=== PATIENT | male | born 1970 | race Caucasian/White ===

== ENCOUNTER 2017-12-08 07:21 | Emergency (ER) | payer BC, OTHER ==
[~2017-12-08] VITALS: Ht 175.3 cm; Wt 113.0 kg
[~2017-12-08 07:21] MED LIST: CETI10TA84 PO; CLX20 PO; LEVO75TA25 PO; MULTTAB58 PO
[2017-12-08 07:22] VITALS: TEMP 36.9; Ht 175.3 cm; Wt 113.0 kg
[2017-12-08] MEDS ORDERED: LIDO/EPINEPHRINE/SOD BICARB 20 ML VIAL INFIL ONE (07:30)
[2017-12-08] MEDS ORDERED: ONDANSETRON 4MG OD TAB ONE (07:34)
--- NOTE | 2017-12-08 07:41 | EMERGENCY ROOM VISIT NOTE ---
History Report prepared by Caryl: Joselo Muller Under the Supervision of: Dr. German Woodward M.D. First contact with patient: 07:27 Chief Complaint: HEAD INJURY (MINOR) Stated Complaint: FELL AND HIT HEAD AT WORK,BLEEDING/PAIN History of Present Illness The patient is a 47 year old male who presents to the Emergency Room with complaints of a mild head injury that occurred [employer]. He has a past medical history of hyperlipidemia and hypothyroidism. This morning, the patient was walking outside when he accidentally slipped and fell, hitting his head in the process. He has a laceration to the area. He denies any loss of consciousness, weakness, or numbness. He has now developed a headache that he rates a 6/10 in severity. He denies this headache as being the worst of his life. He denies any blood thinner use. He notes that he also struck his left elbow, but is able to move it normally and is not bothering him. He denies any other trauma or injury to any other location. He is currently nauseated. He denies any loss of coordination or vomiting. Source of History: patient Onset: [employer] Position: head Symptom Intensity: mild Quality: other (Head Injury) Timing: constant Associated Symptoms: + headache, + nausea, No LOC, No vomiting, No weakness , No numbness Review of Systems See HPI for pertinent positives & negatives. A total of 10 systems reviewed and were otherwise negative. Past Medical & Surgical Medical Problems: (1) Hyperlipidemia (2) Hypothyroidism Family History Diabetes mellitus Heart disease Hypertension Social History Smoking Status: Never Smoker Smokeless Tobacco Use: No Alcohol Use: occasionally Drug Use: none Marital Status: Housing Status: lives with family Occupation Status: employed Current/Historical Medications Scheduled Cetirizine (Zyrtec), 10 MG PO DAILY Citalopram (Citalopram Hydrobromide), 20 MG PO DAILY Levothyroxine Sodium (Synthroid), 75 MCG PO DAILY Allergies Coded Allergies: Sulfa Drugs (Unverified Allergy, Mild, RASH, 12/08/17) Physical Exam Vital Signs Date Time Temp Pulse Resp B/P (MAP) Pulse Ox O2 Delivery O2 Flow Rate FiO2 12/08/17 08:28 77 18 135/79 95 12/08/17 07:22 36.9 76 18 113/74 96 Room Air Physical Exam GENERAL: Patient is a healthy-appearing well-nourished male HEAD: Normocephalic. There is a 5 cm laceration to the left parietal area. EYES: Ocular movements intact pupils equal and react to light OROPHARYNX mucous membranes are moist no exudates present no erythema or edema present NECK: Supple no nuchal rigidity CHEST: Good equal expansion LUNGS: Clear and equal to auscultation CARDIAC: Normal S1 and S2 ABDOMEN: Soft nontender no guarding BACK: No CVA tenderness EXTREMITIES: No pain upon palpation normal muscle strength in all groups no clubbing cyanosis or edema NEURO: GCS 15. Patient is following commands and answering questions appropriately. Alert and oriented x3 Cranial Nerves 2-12 grossly intact Medical Decision & Procedures Medications Administered Medications (Trade) Dose Ordered Sig/Pancho Route Start Time Stop Time Status Last Admin Dose Admin Lidocaine/ Epinephrine (Buffered Xylocaine/ Epinephrine 1% Inj) 20 ml STK-MED ONCE INFIL 12/08/17 07:30 12/08/17 07:31 DC 12/08/17 07:30 20 ML Ondansetron HCl (Zofran Odt) 4 mg STK-MED ONCE .ROUTE 12/08/17 07:34 12/08/17 07:35 DC 12/08/17 07:35 4 MG Procedure Location: Left parietal area Total length: 5 cm Complexity: Simple, linear Verbal consent was obtained after the risks and benefits were explained, including but not limited to bleeding, scarring, infection, pain, and bone/joint /nerve damage. At this time, the risks of the procedure are less than the risks of NOT performing the procedure. A time out was taken and the correct patient and site identified. The skin was prepped with betadine. The target area was anesthetized with 10 ml of 1% lidocaine without epinephrine. Copious irrigation was performed using normal saline. The skin was re-prepped with betadine and a sterile field set. The wound was explored for foreign bodies and none found. Examination revealed no injury to deep structures such as tendons, bone, or significant blood vessels. Debridement was not performed. The wound edges were approximated using 16 cyndee. Hemostasis and excellent approximation was achieved. Antibacterial ointment and a sterile dressing applied. Detailed wound care instructions and signs and symptoms of infection reviewed with the patient. No complications and the patient tolerated the procedure well. ED Course 726: Past medical records reviewed. The patient was evaluated in room A2. A complete history and physical examination was performed. 0733: I performed a laceration repair procedure at this time. Please see the procedure note for more information. The patient was given Zofran Odt 4 mg PO during the procedure secondary to his nausea. 0737: The patient states that his headache and nausea feel better at this time. He also confirms that it was not the worst headache of his life. 0830: Upon reexamination the patient is resting. I discussed results and treatment plan with the patient. He verbalizes agreement and understanding. The patient is ready for discharge. Medical Decision Differential diagnosis: Etiologies such as fracture, dislocation, intra-abdominal, pneumothorax, intrathoracic , intracranial, neurologic, as well as other traumatic pathologies were entertained. This is a 47-year-old male who presents emergency department with a laceration to his had after a fall. This was repaired as above. I gave my customary talk on the dangers of radiation balanced with the need for CAT scan imaging and using shared medical decision making with the patient and his we felt that a CAT scan was not necessary at this point as the patient is not having any projectile vomiting, did not lose consciousness, has no loss of coordination. The patient will return however if he develops any of these symptoms. He will return in 7-10 days to have the cyndee removed. Patient and are in agreement with the treatment plan. Head Trauma GCS Score: 15 Medication Reconcilliation Current Medication List: was personally reviewed by me Blood Pressure Screening Patient's blood pressure: Normal blood pressure Blood pressure disposition: Did not require urgent referral Impression Primary Impression: Laceration Additional Impression: Head injury Scribe Attestation The scribe's documentation has been prepared under my direction and personally reviewed by me in its entirety. I confirm that the note above accurately reflects all work, treatment, procedures, and medical decision making performed by me. Departure Information Dispostion Home / Self-Care Referrals Ld Antoine M.D. (PCP) Forms HOME CARE DOCUMENTATION FORM, IMPORTANT VISIT INFORMATION, School Instructions, Work Instructions Patient Instructions ED Head Injury Closed, ED Laceration Scalp Stitch Or Stap, [facility] Additional Instructions Remove cyndee in 7-10 days You have been examined and treated today on an emergency basis only. This is not a substitute for, or an effort to provide, complete comprehensive medical care. It is impossible to recognize and treat all injuries or illnesses in a single emergency department visit. It is therefore important that you follow up closely with Dr Antoine. Call as soon as possible for an appointment. Thank you for your time and consideration. I look forward to speaking with you again soon. Please don't hesitate to call us if you have any questions. Problem Qualifiers Additional Impression: Head injury Encounter type: initial encounter Qualified Codes: S09.90XA - Unspecified injury of head, initial encounter
[2017-12-08] MEDS ORDERED: CLX/20 PO (07:49)
[2017-12-08] MEDS ORDERED: LEVO75TA PO (07:49)
[2017-12-08 08:28] VITALS: BP 135/79; PULSE 77; O2SAT 95
== END 2017-12-08 08:28 | disposition home or self-care (01) ==
LOC: C.EDB 07:22 → C.EDA 08:28
DX: S01.91XA Laceration without foreign body of unspecified part of head, initial encounter (principal); S09.90XA Unspecified injury of head, initial encounter; W01.0XXA Fall on same level from slipping, tripping and stumbling without subsequent striking against object, initial encounter; Y92.89 Other specified places as the place of occurrence of the external cause; E78.5 Hyperlipidemia, unspecified; E03.9 Hypothyroidism, unspecified; Z79.899 Other long term (current) drug therapy; Z83.3 Family history of diabetes mellitus; Z82.49 Family history of ischemic heart disease and other diseases of the circulatory system

== ENCOUNTER 2017-12-16 07:29 | Emergency (ER) | payer OTHER ==
[~2017-12-16] VITALS: Ht 175.3 cm; Wt 111.7 kg
[~2017-12-16 07:29] MED LIST changes: +CLX/20 PO; -CLX20 PO; +LEVO75TA PO; -LEVO75TA25 PO; -MULTTAB58 PO
[2017-12-16 07:32] VITALS: BP 135/90; PULSE 84; TEMP 36.8; O2SAT 96; Ht 175.3 cm; Wt 111.7 kg
[2017-12-16] MEDS ORDERED: LEVO88TA3 PO (07:38)
--- NOTE | 2017-12-16 07:53 | EMERGENCY ROOM VISIT NOTE ---
ED Visit Note First contact with patient: 07:36 CHIEF COMPLAINT: Staple removal HPI: This patient returns to the ED today for removal of cyndee that were placed 8 days ago on the patient's posterior left scalp. There has been no swelling, redness, or drainage from the wound. The patient feels like the laceration is healing well. REVIEW OF SYSTEMS: A complete 6 point review of systems was reviewed with the patient with pertinent positives and negatives as per history of present illness. All else were negative. PMH: Hypothyroidism, anxiety, allergic rhinitis SOCIAL HISTORY: Patient lives locally with family. Denies drug, alcohol, tobacco use. PHYSICAL EXAM: Vital Signs: Reviewed Nurse's notes. There is a stapled wound on the posterior scalp with no signs of infection. There is no erythema, swelling, or tenderness. EMERGENCY DEPARTMENT COURSE: The patient was seen and evaluated as above. 16 cyndee were removed from the left posterior scalp without any difficulty and there was no separation of the wound edges. Bacitracin ointment was applied to the wound. Discharge instructions reviewed, and the patient is discharged home in good condition. I attest that I have personally reviewed the patient's current medication list. Patient was found to have normal blood pressure on screening and does not require follow-up. DIFFERENTIAL DIAGNOSIS: Laceration, dehisced wound, staple removal, and others DIAGNOSIS: Healing laceration and staple removal Problem List Medical Problems: (1) Hyperlipidemia Status: Chronic (2) Hypothyroidism Status: Chronic Current/Historical Medications Scheduled Cetirizine (Zyrtec), 10 MG PO DAILY Citalopram (Citalopram Hydrobromide), 20 MG PO DAILY Levothyroxine Sodium (Levothyroxine Sodium), 1 TAB PO DAILY Allergies Coded Allergies: Sulfa Drugs (Unverified Allergy, Mild, RASH, 12/16/17) Vital Signs Date Time Temp Pulse Resp B/P (MAP) Pulse Ox O2 Delivery O2 Flow Rate FiO2 12/16/17 07:32 36.8 84 18 135/90 96 Room Air Departure Information Impression Primary Impression: Encounter for removal of cyndee Additional Impression: Laceration of skin of scalp Dispostion Home / Self-Care Condition GOOD Referrals Ld Antoine M.D. (PCP) Patient Instructions ED Stap Removal No Complication, My [facility] Additional Instructions You were seen in the emergency department today for removal of the 16 cyndee were placed in your scalp. These were removed without complication. As discussed, there is an open wound on your scalp from where the cyndee were in place. Please use caution when washing the area. Please do not soak the open wound in water. Proper wound care is essential for adequate wound healing and infection prevention. You can shower and clean the wound with soap and water. Do not scour over the wound, pat dry with a towel. Do not submerse the wound (i.e. bathe or dish wash) until the wound has fully healed. You can use an antibiotic ointment with a dressing over the wound for the next 3-4 days. After this time you may leave the wound dry and open to the air. Ibuprofen(Motrin, Advil) may be used for fever or pain. Use 600mg every six hours as needed. Take with food. Avoid using more than 2400mg in a 24 hour period. Do not use 2400mg per day for more than three consecutive days without physician direction. Prolonged inappropriate use can lead to stomach upset or ulcers. (AND/OR) Acetaminophen(Tylenol) may be used for fever or pain. Use 1000mg every six hours as needed. Avoid using more than 3000mg in a 24 hour period. Follow-up the PCP for wound recheck in 3-4 days. Return to the emergency department or seek care by your PCP for significant redness, swelling, purulent drainage, pain, fever, chills, nausea, vomiting, or other concerning symptoms. Problem Qualifiers Additional Impression: Laceration of skin of scalp Encounter type: subsequent encounter Qualified Codes: S01.01XD - Laceration without foreign body of scalp, subsequent encounter
== END 2017-12-16 07:59 | disposition home or self-care (01) ==
LOC: C.EDB 07:30 → C.EDA 07:59
DX: Z48.02 Encounter for removal of sutures (principal); S01.01XD Laceration without foreign body of scalp, subsequent encounter; X58.XXXD Exposure to other specified factors, subsequent encounter